=== PATIENT | female | born 1950 | race Caucasian/White ===

== ENCOUNTER → 2018-07-19 | Outpatient (CLI) | payer OTHER ==
[~2018-07-19] MED LIST: HYDCHL12.5 PO; VENL25; ZESTORETIC 20-121 EA
[2018-07-20 15:33] LABS: Stool Occult Bld Immuno 1 Negative (NEGATIVE)
== END | disposition home or self-care (01) ==
LOC: LAB EV 07:30 → EDSTATUS 13:12
PROVIDERS: Internal Medicine
DX: Z12.11 Encounter for screening for malignant neoplasm of colon (principal)
CPT/HCPCS: G0328

== ENCOUNTER 2018-11-29 11:52 | Day surgery (SDC) | payer OTHER ==
[~2018-11-29] VITALS: Ht 149.9 cm; Wt 69.8 kg
[~2018-11-29 11:52] MED LIST changes: +BIFERA RX TABL1 EACH PO; +BIOTIN5000 MCG; +BUPR150ER; +CENTRUM WOMEN1 EACH PO; +CITA20 PO; +D3-20002000 UNIT; +FISH OIL 1,2001 EAC1 PO; +GNP B-COMPLEX1 EACH PO; +GNP GLUCOSAMIN1 EAC2 PO; +GREEN TEA EXTR150 MG PO; +HYDCHL25 PO; +Micro-K10 MEQ PO; +SIMV10 PO; +YUVAFEM10 MCG VAG
== END 2018-11-29 13:32 | disposition home or self-care (01) ==
LOC: ORSCSDS 11:52
PROVIDERS: Internal Medicine Gastroenterology
PROC: 0DJD8ZZ Inspection of Lower Intestinal Tract, Via Natural or Artificial Opening Endoscopic (ICD-10-PCS; principal; 2018-11-29 13:00)
DX: Z12.11 Encounter for screening for malignant neoplasm of colon (principal); K57.30 Diverticulosis of large intestine without perforation or abscess without bleeding; Z79.899 Other long term (current) drug therapy
CPT/HCPCS: J7120

== ENCOUNTER → 2019-12-03 | Outpatient (CLI) | payer OTHER | END | disposition home or self-care (01) | LOC: LAB SHORT 07:52 → PLD 07:52 | DX: D22.5 Melanocytic nevi of trunk (principal) | CPT/HCPCS: 88305 ==

== ENCOUNTER 2020-09-08 07:49 | Day surgery (SDC) | payer OTHER ==
[~2020-09-08] VITALS: Ht 152.4 cm; Wt 70.0 kg
[~2020-09-08 07:49] MED LIST changes: -BUPR150ER; +BUPR150ER PO
--- NOTE | 2020-09-08 09:31 | NUR ---
09/08/20 0931 Lizbeth Askew LATE ENTRY: PT ON CONTINOUS O2 AT 2L VIA NC DURING MED ADMINITRATION
== END 2020-09-08 09:57 | disposition home or self-care (01) ==
LOC: ORSCSDS 07:49
PROVIDERS: Orthopaedic Surgery
PROC: 01N54ZZ Release Median Nerve, Percutaneous Endoscopic Approach (ICD-10-PCS; principal; 2020-09-08 09:00)
DX: G56.02 Carpal tunnel syndrome, left upper limb (principal); I10 Essential (primary) hypertension; E78.5 Hyperlipidemia, unspecified; F32.9 Major depressive disorder, single episode, unspecified; Z79.899 Other long term (current) drug therapy
CPT/HCPCS: J2250; J3010

== ENCOUNTER 2021-10-26 09:53 | Day surgery (SDC) | payer OTHER ==
[~2021-10-26] VITALS: Ht 149.9 cm; Wt 68.1 kg
[2021-10-26] MEDS ORDERED: Aspir 8181 MG PO (10:46)
--- NOTE | 2021-10-26 11:25 | NUR ---
10/26/21 [address] CARDENAS IN FOR TIMEOUT AND SITE CHECK. SHE INJECTS LOCAL, PT TOLERATES WELL.
== END 2021-10-26 12:06 | disposition home or self-care (01) ==
LOC: ORSCSDS 09:53
PROVIDERS: Orthopaedic Surgery
PROC: 01N54ZZ Release Median Nerve, Percutaneous Endoscopic Approach (ICD-10-PCS; principal; 2021-10-26 11:15)
DX: G56.01 Carpal tunnel syndrome, right upper limb (principal); I10 Essential (primary) hypertension; E66.9 Obesity, unspecified; Z68.30 Body mass index [BMI] 30.0-30.9, adult; Z79.899 Other long term (current) drug therapy
CPT/HCPCS: J1885; J2250; J2704; J3010

== ENCOUNTER → 2023-02-01 | Outpatient (CLI) | payer OTHER ==
[~2023-02-01] MED LIST changes: +Aspir 8181 MG PO
== END | disposition home or self-care (01) ==
LOC: LAB SHORT 09:50 → LAB 09:50
DX: N39.0 Urinary tract infection, site not specified (principal)
CPT/HCPCS: 87077; 87086; 87186